=== PATIENT | female | born 1955 ===

== ENCOUNTER 2025-03-28 09:48 | Outpatient (AMB) | payer MEDICARE, SELFPAY ==
--- NOTE | 2025-03-28 09:53 | A.OFFVIS_ITS ---
Intake Visit Reasons: 6m Sensory Neuropathy Allergies No Known Allergies Allergy (Verified 03/28/25 09:54) Medication List - Last Reconciled 03/28/25 by Letty Noriega CNP atorvastatin 20 mg PO DAILY cholestyramine (Cholestyramine Light) 4 grams PO BID lisinopril 5 mg PO DAILY metoprolol succinate ER 25 mg PO DAILY HPI Comments Details: She stopped B complex few months ago, no significant change in symptoms after stopping. Has some left leg numbness and tingling that comes and goes throughout the day, more noticeable after sitting for period of time and when she wakes up. No pain. No symptoms to RLE. No recent falls. She is in PT for slight L meniscus tear which she got after turning weird in garden earlier this spring. Some LLE weakness due to knee injury. Tried B complex for > 6 months, no significant change. Has some left leg numbness and tingling mostly when she wakes up and off and on in the day. Overall feeling better with less tingling and numbness. Also using an orthotic insole. Numbness in the 3 toes of the right foot is gone. Much less tingling in both feet up to the knees with a sensation of things crawling, or if further touching her without any pain or weakness. She gets occasional low back pain. The symptoms of paresthesia in the legs and feet last from 5-10 min. They can oc cur in any position. No triggers have been identified. [facility] Medical History (Updated 03/28/25 @ 09:58 by Letty Noriega CNP) Hyperlipidemia Hypertension Osteoarthritis Bile acid malabsorption syndrome Osteoporosis Review of Systems Const Denies chills, Denies daytime sleepiness, Denies difficulty sleeping, Denies fatigue, Denies fever(s), Denies frequent falls, Denies headache(s), Denies increased appetite, Denies poor appetite, Denies snoring, Denies weakness, Denies weight gain and Denies weight loss Eyes Denies loss of vision ENT Denies vertigo, Denies dizziness, Denies headache(s) and Denies neck pain Card Denies chest pain at rest, Denies chest pain with activity, Denies syncope, Denies leg edema, Denies palpitations, Denies dyspnea and Denies dyspnea on exertion Resp Denies cough, Denies dyspnea, Denies dyspnea on exertion and Denies snoring GI Denies abdominal pain, Denies constipation, Denies heartburn, Denies diarrhea and Denies nausea Denies urinary frequency, Denies urinary incontinence and Denies urinary urgency Musc Denies abnormal gait, Reports back pain, Denies myalgias, Reports arthralgias, Denies neck pain, Reports numbness and Reports tingling Neuro Denies abnormal gait, Denies vertigo, Denies dizziness, Denies syncope, Denies frequent falls, Denies headache(s), Denies lack of coordination, Denies loss of vision, Denies memory loss, Reports numbness, Denies Other visual disturbances, Denies restless legs, Denies seizure-like activity, Reports tingling, Denies paresthesias, Denies tremor(s) and Denies weakness Psych Denies anxiety, Denies depression, Denies auditory hallucinations, Denies memory loss and Denies visual hallucinations Endo Denies fatigue and Denies palpitations Physical Exam Const Other: General Appearance:? normal, in no acute distress. Heart:? S1, S2 normal, no murmurs. Lungs:? clear anteriorly and posteriorly. Musculoskeletal:? normal. Extremities:? no edema. Psych:? alert, oriented, cognitive function intact, cooperative with exam. Neuro Other: Abnormal Neurological Findings:?Diminished AJs 0-1+. KJs 2+ with reinforcement. Mental Status: alert and oriented X 3. Normal attention, orientation, memory, and affect. Cranial Nerves: Pupils are equal, round, and reactive to light. External ocular muscles are intact. Visual alexandre are full, no ptosis. Face is symmetrical, no facial weakness or droop. Facial sensations are normal. Tongue protrudes in midline. Palate elevates symmetrically. Shoulder shrugging is normal Motor Examination: Normal muscle tone, bulk and strength. No atrophy or fasciculations. No drift of the extended upper extremities. DTR 2+, AJs 0-1+. Plantars are flexor. Sensory Exam: Normal light touch, temperature, pinprick, vibration, and joint- position sensations. Rhomberg sign is absent. Coordination: No ataxia. No titubation. Gait Exam: Within normal limits. Cerebellar Signs: [id number] is okay. Extrapyramidal System: No tremor, rigidity with normal facial expressions. No bradykinesia. No bradyphrenia. Normal arm swing and posture. No propulsion or retropulsion. Speech: Normal. Results Reviewed Results Reviewed: 03/08/24 NCV/EMG LE Normal motor and sensory nerve conduction velocities in the lower extremities. Normal EMG in the left L4-S1 innervated muscles. Labs 11/2023 (vitamin B12 + folate, magnesium, methylmalonic acid): ok Assessment & Plan Assessment & Plan (1) Sensory neuropathy: Code(s): G62.9 - Polyneuropathy, unspecified Category: Medical Plan: Stay physically active. Coding Level of Care Code Est Pt Level 4 (39269) Diagnoses Sensory neuropathy G62.9
--- OUTSIDE RECORDS SUMMARY | 2025-03-28 10:44 | XMS_ITS | Patient Health Record ---
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 Name Role Phone Shawn WOOTEN, Steve Primary Care Provider Unav ailable OsirisMario Unavailable [phone] Allergies No Known Allergies Reason For Referral No Information Medications Medication SIG (Take, Route, Frequency, Duration) Notes Start Date End Date Status Lisinopril 5 MG 1 tablet Orally Once a day Active Cholestyramine Light 4 GM 1 scoop Orally Once a day Active Naproxen Sodium 220 MG 1 tablet with paula d or milk as needed Orally every 12 hrs Active Fiber - as directed Orally A ctive Womens 50+ Multi Vitamin - as directed Orally Active Flonase Sensimist 27.5 MCG/SPRAY 2 sprays (1 spray in each nostril) Nasally Once a day Active Calcium + D Active Calcium + D3 Unknown Paxlovid Unknown Metoprolol Succinate ER 25 MG 1 tablet Orally Once a day Active Atorvastatin Calcium Active Social History Tobacco Use: Social History Observation Description Date Details (start date - stop date) Never Smoker NA - NA Tobacco Use/Smoking Question Answer Notes Are you a: nonsmoker Additional Findings: Tobacco Non-User Current no n-smoker Alcohol Screen Question Answer Notes Did you have a drink containing alcohol in the p ast year? Yes Points 0 Interpretation Negative Tobacco use other than smoking: Question Answer Notes Are you an other tobacco user? 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) Neuritis of left foot (G57.92) Active confirmed Plan Of Treatment Pending Test Test Name Order Date X ray : Foot, left 3V 02/22/2024 Insurance Providers Payer Name Payer Address Payer Phone Subscriber Number Group Number Insured Name Patient Relationship to Insured Coverage Start Date Coverage End Date Medicare National Govt Pongo Resume [facility] [address] [place] [address] [id number] HarleenCarly huff Self - patient is the insured [employer] [address] [place] [address] [phone] [id number] Carly Knox Self - patient is the insured Medical (General) History Medical History History ICD Code Carpal tunnel sinusitis Eustachian Tube Disorder Acute pharyngitis Otitis media Greater trochanteric pain syndrome Degenerative Disc disease osteoarthritis Osteopenia Hypertension Scoliosis Bile acid malabsorption syndrome Arthritis Back,Hip,and Knee pain Broken bones covid-19 High blood pressure Measles Chicken pox Joint implants/screws Surgical History Surgery Date(Month/Year) Orthopedic Surgery 06/28/13, 06/10/14 tonsillectomy and adenoidectomy 06/28/63 fractured ankle 05/2014 fractured elbow 1965
--- OUTSIDE RECORDS SUMMARY | 2025-03-28 10:44 | XMS_ITS | Data Portability ---
Author Organization [facility], Main Office Address [address] [facility] [address] [place] [id number] Care Team Providers Care Charge Entry Specialist Name Role Phone STEVE ESCOBAR Primary Care Provider FRAN MCKAY Orthopedic Surgeon [facility] OBGYN Assembler Product [phone] NURIS YAN Events Specialist FERNANDO VILLAREAL Combination Welder GLORIA CHA Licensed Mortician [phone] OBIE GONZALEZ Coding Technician [facility] ENDOCRINOLOGY SCHEDULING DEPT Endocrino logist Assessment No assessment recorded. Plan of Treatment Reminders Order Date Submit Date Provider Last Modified By Organization Details Last Modified Time Details Appointments None recorded. Lab CBC w/ auto diff 2024 025 BEKA [facility] (Centralized Electronic Ordering - All Locations), Patient Can Go To The Location Of Their Choice, 14:22:27 magnesium, serum or plasma 2024 025 BEKA [facility] (Centralized Electronic Ordering - All Locations), Patient Can Go To The Location Of Their Choice, 14:22:26 lipid panel, serum 2024 025 BEKA [facility] (Centralized Electronic Ordering - All Locations), Patient Can Go To The Location Of Their Choice, 14:22:27 CMP, serum or plasma 2024 025 BEKA [facility] (Centralized Electronic Ordering - All Locations), Patient Can Go To The Location Of Their Choice, 5 14:22:26 vitamin B12 + folate, serum or blood 2023 024 BEKA [facility] (Centralized Electronic Ordering - All Locations), Patient Can Go To The Location Of Their Choice, 4 20:09:24 magnesium, serum or plasma 2023 024 BEKA [facility] (Centralized Electronic Ordering - All Locations), Patient Can Go To The Location Of Their Choice, 4 20:09:25 methylmalon ate, QN, serum or plasma 2023 024 BEKA [facility] (Centralized Electronic Ordering - All Locations), Patient Can Go To The Location Of Their Choice, 4 20:09:25 CBC w/ auto diff 2023 024 BEKA [facility] (Centralized Electronic Ordering - All Locations), Patient Can Go To The Location Of Their Choice, 4 06:08:42 lipid panel, serum 2023 024 BEKA [facility] (Centralized Electronic Ordering - All Locations), Patient Can Go To The Location Of Their Choice, 4 06:08:43 CMP, serum or plasma 2023 024 BEKA [facility] (Centralized Electronic Ordering - All Locations), Patient Can Go To The Location Of Their Choice, 4 06:08:43 CBC w/ auto diff 2022 023 BEKA [facility], [address], [address], [place], [address], 3 10:07:24 lipid panel, serum 2022 023 BEKA [facility], [address], [address], [place], [address], 3 10:40:52 CMP, serum or plasma 2022 023 STRYKER [facility], [address], [address], [place], [address], 3 10:40:51 Referral industrial health and safety professor referral 2023 024 [facility], [address] , [facility], [place], [address], 4 14:01:49 Procedures None recorded. Surgeries None recorded. Imaging bone density 2023 024 [facility] (Outt Non-Invasive Cardiology Scheduling), [address] , [place], [address], 4 09:38:11 Medication Orders prednisone 20 mg tablet 2023 024 [email or web address] [id number], [address] [place] [address], [place], [address], 4 15:17:26 Patient TargetsNo targets recorded. Patient Instructions Encounter Date Encounter Id Patient Instructions Last Modified By Organization Details Last Modified Time 08/12/2022 [id number] medicare preventive services guide (female 74yrs and under) [email or web address] Not available 08/12/2022 11:04:58 starting a weight loss plan: care instructions [email or web address] Not available 08/12/2022 11:12:01 07/06/2023 [id number] eustachian tube problems: care instructions [email or web address] Not available 07/06/2023 14:36:34 middle ear fluid: care instructions [email or web address] Not available 07/06/2023 14:36:34 To call or return for worsening or concerns [email or web address] Not available 07/06/2023 14:37:37 10/13/2023 [id number] high blood pressure: care instructions [email or web address] Not available 10/13/2023 15:44:33 learning about high blood pressure [email or web address] Not available 10/13/2023 15:44:33 high cholesterol: care instructions [email or web address] Not available 10/13/2023 15:51:15 preventing falls: care instructions [email or web address] Not available 10/13/2023 15:44:33 well visit, over 65: care instructions [email or web address] Not available 10/13/2023 15:44:33 03/22/2025 [id number] high blood pressure: care instructions [email or web address] Not available 03/22/2025 14:02:47 learning about high blood pressure [email or web address] Not available 03/22/2025 14:02:47 preventing falls: care instructions [email or web address] Not available 03/22/2025 14:02:47 well visit, over 65: care instructions [email or web address] Not available 03/22/2025 14:02:47 Reason for Referral Pediatric Cns 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 Referring Physician: Steve Escobar, Family Medicine, Encounter Date: 12/02/2023 Results Created Date Observation Date Name Description Value Unit Range Abnormal Flag Note LastModifiedBy Organization Detail LastModifiedTime 10/31/1910/30/2022 COMPL ETE CBC WITH DIFF WBC 5.6 K/mm3 (4.0-1 1.0) Not Available [facility] (Centralized Electronic Ordering - All Locations) Patient Can Go To The Location Of Their Choice, 10/30/2022 10:07:24 10/31/1910/30/2022 COMPL ETE CBC WITH DIFF RBC 4.29 M/mm3 (4.20- 5.40) Not Available [facility] (Centralized Electronic Ordering - All Locations) Patient Can Go To The Location Of Their Choice, 10/30/2022 10:07:24 10/31/1910/30/2022 COMPL ETE CBC WITH DIFF HGB 13.4 gm/dL (11.7- 15.5) Not Available [facility] (Centralized Electronic Ordering - All Locations) Patient Can Go To The Location Of Their Choice, 10/30/2022 10:07:24 10/31/1910/30/2022 COMPL ETE CBC WITH DIFF HCT 41.8 % (35.7- 45.8) Not Available [facility] (Centralized Electronic Ordering - All Locations) Patient Can Go To The Location Of Their Choice, 10/30/2022 10:07:24 10/31/1910/30/2022 COMPL ETE CBC WITH DIFF MCV 97.4 fL (80.0- 100.0) Not Available [facility] (Centralized Electronic Ordering - All Locations) Patient Can Go To The Location Of Their Choice, 10/30/2022 10:07:24 10/31/1910/30/2022 COMPL ETE CBC WITH DIFF MCH 31.2 pg (27.0- 34.0) Not Available [facility] (Centralized Electronic Ordering - All Locations) Patient Can Go To The Location Of Their Choice, 10/30/2022 10:07:24 10/31/1910/30/2022 COMPL ETE CBC WITH DIFF MCHC 32.1 g/dL (33.0- 37.0) low Not Available [facility] (Centralized Electronic Ordering - All Locations) Patient Can Go To The Location Of Their Choice, 10/30/2022 10:07:10/31/1910/30/2022 COMPL ETE CBC WITH DIFF plt 294 K/mm3 (150-4 60) Not Available [facility] (Centralized Electronic Ordering - All Locations) Patient Can Go To The Location Of Their Choice, 10/30/2022 10:07:10/31/1910/30/2022 COMPL ETE CBC WITH DIFF RDW-SD 46.5 fL (<47.0 ) Not Available [facility] (Centralized Electronic Ordering - All Locations) Patient Can Go To The Location Of Their Choice, 10/30/2022 10:07:24 10/31/1910/30/2022 COMPL ETE CBC WITH DIFF MPV 9.6 fL (9.4-1 2.4) Not Available [facility] (Centralized Electronic Ordering - All Locations) Patient Can Go To The Location Of Their Choice, 10/30/2022 10:07:24 10/31/1910/30/2022 COMPL ETE CBC WITH DIFF automated NRBC 0.0 #/100 _WBC' s Not Available [facility] (Centralized Electronic Ordering - All Locations) Patient Can Go To The Location Of Their Choice, 10/30/2022 10:07:24 10/31/1910/30/2022 COMPL ETE CBC WITH DIFF abs. NRBC 0.0 K/mm3 Not Available [facility] (Centralized Electronic Ordering - All Locations) Patient Can Go To The Location Of Their Choice, 10/30/2022 10:07:24 10/31/1910/30/2022 COMPL ETE CBC WITH DIFF neut # 3.0 K/mm3 (1.3-7 .0) Not Available [facility] (Centralized Electronic Ordering - All Locations) Patient Can Go To The Location Of Their Choice, 10/30/2022 10:07:24 10/31/1910/30/2022 COMPL ETE CBC WITH DIFF lymph # 1.8 K/mm3 (0.8-3 .1) Not Available [facility] (Centralized Electronic Ordering - All Locations) Patient Can Go To The Location Of Their Choice, 10/30/2022 10:07:24 10/31/1910/30/2022 COMPL ETE CBC WITH DIFF mono# 0.6 K/mm3 (0.4-0 .9) Not Available [facility] (Centralized Electronic Ordering - All Locations) Patient Can Go To The Location Of Their Choice, 10/30/2022 10:07:24 10/31/1910/30/2022 COMPL ETE CBC WITH DIFF eo # 0.2 K/mm3 (0.0-0 .4) Not Available [facility] (Centralized Electronic Ordering - All Locations) Patient Can Go To The Location Of Their Choice, 10/30/2022 10:07:24 10/31/1910/30/2022 COMPL ETE CBC WITH DIFF baso # 0.1 K/mm3 (0.0-0 .1) Not Available [facility] (Centralized Electronic Ordering - All Locations) Patient Can Go To The Location Of Their Choice, 10/30/2022 10:07:24 10/31/1910/30/2022 COMPL ETE CBC WITH DIFF abs. imm gran 0.0 K/mm3 Not Available [facility] ([facility] Order[facility] - All Locations) Patient Can Go To The Location Of Their Choice, 10/30/2022 10:07:24 10/31/1910/30/2022 COMPL ETE CBC WITH DIFF neut 53.0 % (44-76 ) Not Available [facility] (Centralized Electronic Ordering - All Locations) Patient Can Go To The Location Of Their Choice, 10/30/2022 10:07:24 10/31/1910/30/2022 COMPL ETE CBC WITH DIFF lymph 32.4 % (15-43 ) Not Available [facility] (Centralized Electronic Ordering - All Locations) Patient Can Go To The Location Of Their Choice, 10/30/2022 10:07:24 10/31/1910/30/2022 COMPL ETE CBC WITH DIFF monocyte 9.8 % (4.5-1 0.5) Not Available [facility] (Centralized Electronic Ordering - All Locations) Patient Can Go To The Location Of Their Choice, 10/30/2022 10:07:24 10/31/1910/30/2022 COMPL ETE CBC WITH DIFF eo 3.5 % (0-6) Not Available [facility] (Centralized Electronic Ordering - All Locations) Patient Can Go To The Location Of Their Choice, 10/30/2022 10:07:24 10/31/1910/30/2022 COMPL ETE CBC WITH DIFF baso 0.9 % (0-2) Not Available [facility] (Centralized Electronic Ordering - All Locations) Patient Can Go To The Location Of Their Choice, 10/30/2022 10:07:24 10/31/1910/30/2022 COMPL ETE CBC WITH DIFF imm gran 0.4 % Not Available [facility] (Centralized Electronic Ordering - All Locations) Patient Can Go To The Location Of Their Choice, 10/30/2022 10:07:24 10/31/1910/30/2022 COMPR EHENS BATOOL METAB OLIC PANL glucose 93 mg/dL (70-99 ) Fasti ng Not Available [facility] (Centralized Electronic Ordering - All Locations) Patient Can Go To The Location Of Their Choice, 10/30/2022 10:40:51 10/31/1910/30/2022 COMPR EHENS BATOOL METAB OLIC PANL BUN 15 mg/dL (8-23) Not Available [facility] (Centralized Electronic Ordering - All Locations) Patient Can Go To The Location Of Their Choice, 10/30/2022 10:40:51 10/31/1910/30/2022 COMPR EHENS BATOOL METAB OLIC PANL creatinine 0.9 mg/dL (0.5-1 .0) Not Available [facility] (Centralized Electronic Ordering - All Locations) Patient Can Go To The Location Of Their Choice, 10/30/2022 10:40:51 10/31/1910/30/2022 COMPR EHENS BATOOL METAB OLIC PANL sodium 141 mmol/ L (133-1 45) Not Available [facility] (Centralized Electronic Ordering - All Locations) Patient Can Go To The Location Of Their Choice, 10/30/2022 10:40:51 10/31/1910/30/2022 COMPR EHENS BATOOL METAB OLIC PANL potassium 4.5 mmol/ L (3.6-5 .2) Not Available [facility] (Centralized Electronic Ordering - All Locations) Patient Can Go To The Location Of Their Choice, 10/30/2022 10:40:51 10/31/1910/30/2022 COMPR EHENS BATOOL METAB OLIC PANL chloride 104 mmol/ L (98-10 7) Not Available [facility] (Centralized Electronic Ordering - All Locations) Patient Can Go To The Location Of Their Choice, 10/30/2022 10:40:51 10/31/1910/30/2022 COMPR EHENS BATOOL METAB OLIC PANL bicarbonate 28 mmol/ L (22-29 ) Not Available [facility] (Centralized Electronic Ordering - All Locations) Patient Can Go To The Location Of Their Choice, 10/30/2022 10:40:51 10/31/1910/30/2022 COMPR EHENS BATOOL METAB OLIC PANL anion gap 9 (4-17) Not Available [facility] (Centralized Electronic Ordering - All Locations) Patient Can Go To The Location Of Their Choice, 10/30/2022 10:40:51 10/31/1910/30/2022 COMPR EHENS BATOOL METAB OLIC PANL albumin 4.6 gm/dL (3.4-4 .8) Not Available [facility] (Centralized Electronic Ordering - All Locations) Patient Can Go To The Location Of Their Choice, 10/30/2022 10:40:51 10/31/1910/30/2022 COMPR EHENS BATOOL METAB OLIC PANL calcium 9.6 mg/dL (8.6-1 0.5) Not Available [facility] (Centralized Electronic Ordering - All Locations) Patient Can Go To The Location Of Their Choice, 10/30/2022 10:40:51 10/31/1910/30/2022 COMPR EHENS BATOOL METAB OLIC PANL bilirubin,to howie 0.5 mg/dL (0-1.2 ) Not Available [facility] (Centralized Electronic Ordering - All Locations) Patient Can Go To The Location Of Their Choice, 10/30/2022 10:40:51 10/31/1910/30/2022 COMPR EHENS BATOOL METAB OLIC PANL total protein 6.8 gm/dL (6.2-8 .2) Not Available [facility] (Centralized Electronic Ordering - All Locations) Patient Can Go To The Location Of Their Choice, 10/30/2022 10:40:51 10/31/1910/30/2022 COMPR EHENS BATOOL METAB OLIC PANL Ag ratio 2.1 Not Available [facility] (Centralized Electronic Ordering - All Locations) Patient Can Go To The Location Of Their Choice, 10/30/2022 10:40:51 10/31/1910/30/2022 COMPR EHENS BATOOL METAB OLIC PANL AST 20 U/L (0-32) Not Available [facility] (Centralized Electronic Ordering - All Locations) Patient Can Go To The Location Of Their Choice, 10/30/2022 10:40:51 10/31/1910/30/2022 COMPR EHENS BATOOL METAB OLIC PANL alk phos 72 U/L (35-10 4) Not Available [facility] ([facility]ized Electronic Ordering - All Locations) Patient Can Go To The Location Of Their Choice, 10/30/2022 10:40:51 10/31/1910/30/2022 COMPR EHENS BATOOL METAB OLIC PANL ALT 16 U/L (0-33) Not Available [facility] ([facility]ized Electronic Ordering - All Locations) Patient Can Go To The Location Of Their Choice, 10/30/2022 10:40:51 10/31/1910/30/2022 COMPR EHENS BATOOL METAB OLIC PANL estimated GFR creatinine 71 mL/mi n/1.7 3_M2 Creat inine based estim ated glome rular filtr ation (eGFR ) in adult s is calcu lated using the Natio nal Kidne y Found ation recom yeison d 2020 CKD-E PI equat ion. Estim ates GFR from serum creat inine , age and sex. Not Available [facility] ([facility]ized Electronic Ordering - All Locations) Patient Can Go To The Location Of Their Choice, 10/30/2022 10:40:51 10/31/1910/30/2022 LIPID PANEL cholesterol, total 181 mg/dL (<200) Not Available [facility] ([facility] Order[facility] - All Locations) Patient Can Go To The Location Of Their Choice, 10/30/2022 10:40:52 10/31/1910/30/2022 LIPID PANEL triglyceride 98 mg/dL (<150) Fasti ng Not Available [facility] ([facility]ized [facility] Ordering - All Locations) Patient Can Go To The Location Of Their Choice, 10/30/2022 10:40:52 10/31/1910/30/2022 LIPID PANEL HDL chol 88 mg/dL (>39) Not Available [facility] ([facility] Ordering - All Locations) Patient Can Go To The Location Of Their Choice, 10/30/2022 10:40:52 10/31/1910/30/2022 LIPID PANEL LDL cholesterol, calculated 73 mg/dL (0-130 ) Not Available [facility] ([facility] Ordering - All Locations) Patient Can Go To The Location Of Their Choice, 10/30/2022 10:40:52 10/31/1910/30/2022 LIPID PANEL non HDL cholesterol (calc) 93 mg/dL (<160) Not Available [facility] ([facility] Order[facility] - All Locations) Patient Can Go To The Location Of Their Choice, 10/30/2022 10:40:52 11/25/1911/25/2023 CBC WITH ANGELLA BRANHAM AL/PL ATELE T WBC 6.0 x10e3 /uL 3.4-10 .8 Not Available [facility] ([facility]) [address], [place], [address], 11/26/2023 06:08:42 11/25/19 24 11/25/2023 CBC WITH DIFFE RENTI AL/PL ATELE T RBC 4.20 x10e6 /uL 3.77-5 .28 Not Available [facility] ([facility]) [address] [place], [address], 11/26/2023 06:08:42 11/25/19 24 11/25/2023 CBC WITH DIFFE RENTI AL/PL ATELE T hemoglobin 13.3 g/dL 11.1-1 5.9 Not Available [facility] ([facility]) [address] [place], [address], 11/26/2023 06:08:42 11/25/19 24 11/25/2023 CBC WITH DIFFE RENTI AL/PL ATELE T hematocrit 41.4 % 34.0-4 6.6 Not Available [facility] ([facility]) [address] [place], [address], 11/26/2023 06:08:42 11/25/19 24 11/25/2023 CBC WITH DIFFE RENTI AL/PL ATELE T MCV 99 fL 79-97 above high normal Not Available [facility] ([facility]) [address] [place], [address], 11/26/2023 06:08:42 11/25/19 24 11/25/2023 CBC WITH DIFFE RENTI AL/PL ATELE T MCH 31.7 pg 26.6-3 3.0 Not Available [facility] ([facility]) [address] [place], [address], 11/26/2023 06:08:42 11/25/19 24 11/25/2023 CBC WITH DIFFE RENTI AL/PL ATELE T MCHC 32.1 g/dL 31.5-3 5.7 Not Available [facility] ([facility]) [address] [place], [address], 11/26/2023 06:08:42 11/25/19 24 11/25/2023 CBC WITH DIFFE RENTI AL/PL ATELE T RDW 12.3 % 11.7-1 5.4 Not Available [facility] ([facility]) [address] [facility], [place], [address], 11/26/2023 06:08:42 11/25/19 24 11/25/2023 CBC WITH DIFFE RENTI AL/PL ATELE T platelets 322 x10e3 /uL 150-45 0 Not Available [facility] ([facility]) [address] [facility], [place], [address], 11/26/2023 06:08:42 11/25/19 24 11/25/2023 CBC WITH DIFFE RENTI AL/PL ATELE T neutrophils 54 % not estab. Not Available [facility] ([facility]) [address] [facility], [place], [address], 11/26/2023 06:08:42 11/25/19 24 11/25/2023 CBC WITH DIFFE RENTI AL/PL ATELE T lymphs 32 % not estab. Not Available [facility] ([facility]) [address] [facility], [place], [address], 11/26/2023 06:08:42 11/25/19 24 11/25/2023 CBC WITH DIFFE RENTI AL/PL ATELE T monocytes 9 % not estab. Not Available [facility] ([facility]) [address] [facility], [place], [address], 11/26/2023 06:08:42 11/25/19 24 11/25/2023 CBC WITH DIFFE RENTI AL/PL ATELE T eos 4 % not estab. Not Available [facility] ([facility]) [address] [facility], [place], [address], 11/26/2023 06:08:42 11/25/19 24 11/25/2023 CBC WITH DIFFE RENTI AL/PL ATELE T basos 1 % not estab. Not Available [facility] ([facility]) [address] [facility], [place], [address], 11/26/2023 06:08:42 11/25/19 24 11/25/2023 CBC WITH DIFFE RENTI AL/PL ATELE T immature cells PLUMBING INSPECTOR Not Available [facility] ([facility]) [address] [place], [address], 11/26/2023 06:08:42 11/25/19 24 11/25/2023 CBC WITH DIFFE RENTI AL/PL ATELE T neutrophils (absolute) 3.3 x10e3 /uL 1.4-7. 0 Not Available [facility] ([facility]) [address] [facility], [place], [address], 11/26/2023 06:08:42 11/25/19 24 11/25/2023 CBC WITH DIFFE RENTI AL/PL ATELE T lymphs (absolute) 1.9 x10e3 /uL 0.7-3. 1 Not Available [facility] ([facility]) [address] [place], [address], 11/26/2023 06:08:42 11/25/19 24 11/25/2023 CBC WITH DIFFE RENTI AL/PL ATELE T monocytes(ab solute) 0.5 x10e3 /uL 0.1-0. 9 Not Available [facility] ([facility]) [address] [place], [address], 11/26/2023 06:08:42 11/25/19 24 11/25/2023 CBC WITH DIFFE RENTI AL/PL ATELE T eos (absolute) 0.2 x10e3 /uL 0.0-0. 4 Not Available [facility] ([facility]) [address] [place], [address], 11/26/2023 06:08:42 11/25/19 24 11/25/2023 CBC WITH DIFFE RENTI AL/PL ATELE T baso (absolute) 0.1 x10e3 /uL 0.0-0. 2 Not Available [facility] ([facility]) [address] [facility], [place], [address], 11/26/2023 06:08:42 11/25/19 24 11/25/2023 CBC WITH DIFFE RENTI AL/PL ATELE T immature granulocytes 0 % not estab. Not Available [facility] ([facility]) [address] [facility], [place], [address], 11/26/2023 06:08:42 11/25/19 24 11/25/2023 CBC WITH DIFFE RENTI AL/PL ATELE T immature grans (abs) 0.0 x10e3 /uL 0.0-0. 1 Not Available [facility] ([facility]) [address] [facility], [place], [address], 11/26/2023 06:08:42 11/25/19 24 11/25/2023 CBC WITH DIFFE RENTI AL/PL ATELE T NRBC PLUMBING INSPECTOR Not Available [facility] ([facility]) [address] [facility], [place], [address], 11/26/2023 06:08:42 11/25/19 24 11/25/2023 CBC WITH DIFFE RENTI AL/PL ATELE T hematology comments: PLUMBING INSPECTOR Not Available [facility] ([facility]) [address] [facility], [place], [address], 11/26/2023 06:08:42 11/25/19 24 11/25/2023 COMP. METAB OLIC PANEL (14) glucose 84 mg/dL 70-99 Not Available [facility] ([facility]) [address] [place], [address], 11/26/2023 06:08:43 11/25/19 24 11/25/2023 COMP. METAB OLIC PANEL (14) BUN 12 mg/dL 8-27 Not Available [facility] ([facility]) [address] [facility] [place], [address], 11/26/2023 06:08:43 11/25/19 24 11/25/2023 COMP. METAB OLIC PANEL (14) creatinine 0.90 mg/dL 0.57-1 .00 Not Available [facility] ([facility]) [address] [facility] [place], [address], 11/26/2023 06:08:43 11/25/19 24 11/25/2023 COMP. METAB OLIC PANEL (14) eGFR 71 mL/mi n/1.7 3 >59 Not Available [facility] ([facility]) [address] [facility] [place], [address], 11/26/2023 06:08:43 11/25/19 24 11/25/2023 COMP. METAB OLIC PANEL (14) BUN/creatini ne ratio 13 12-28 Not Available [facility] ([facility]) [address] [facility] [place], [address], 11/26/2023 06:08:43 11/25/19 24 11/25/2023 COMP. METAB OLIC PANEL (14) sodium 137 mmol/ L 134-14 4 Not Available [facility] ([facility]) [address] [facility] [place], [address], 11/26/2023 06:08:43 11/25/19 24 11/25/2023 COMP. METAB OLIC PANEL (14) potassium 4.5 mmol/ L 3.5-5. 2 Not Available [facility] ([facility]) [address] [facility] [place], [address], 11/26/2023 06:08:43 11/25/19 24 11/25/2023 COMP. METAB OLIC PANEL (14) chloride 101 mmol/ L 96-106 Not Available [facility] ([facility]) [address] [place], [address], 11/26/2023 06:08:43 11/25/19 24 11/25/2023 COMP. METAB OLIC PANEL (14) carbon dioxide, total 22 mmol/ L Not Available [facility] ([facility]) [address] [place], [address], 11/26/2023 06:08:43 11/25/19 24 11/25/2023 COMP. METAB OLIC PANEL (14) calcium 9.5 mg/dL 8.7-10 .3 Not Available [facility] ([facility]) [address] [place], [address], 11/26/2023 06:08:43 11/25/19 24 11/25/2023 COMP. METAB OLIC PANEL (14) protein, total 6.7 g/dL 6.0-8. 5 Not Available [facility] ([facility]) [address] [place], [address], 11/26/2023 06:08:43 11/25/19 24 11/25/2023 COMP. METAB OLIC PANEL (14) albumin 4.3 g/dL 3.9-4. 9 Not Available [facility] ([facility]) [address] [place], [address], 11/26/2023 06:08:43 11/25/19 24 11/25/2023 COMP. METAB OLIC PANEL (14) globulin, total 2.4 g/dL 1.5-4. 5 Not Available [facility] ([facility]) [address] [place], [address], 11/26/2023 06:08:43 11/25/19 24 11/25/2023 COMP. METAB OLIC PANEL (14) A/G ratio 1.8 1.2-2. 2 Not Available [facility] ([facility]) [address] [place], [address], 11/26/2023 06:08:43 11/25/19 24 11/25/2023 COMP. METAB OLIC PANEL (14) bilirubin, total 0.4 mg/dL 0.0-1. 2 Not Available [facility] ([facility]) [address] [place], [address], 11/26/2023 06:08:43 11/25/19 24 11/25/2023 COMP. METAB OLIC PANEL (14) alkaline phosphatase 87 IU/L 44-121 Not Available [facility] ([facility]) [address] [place], [address], 11/26/2023 06:08:43 11/25/19 24 11/25/2023 COMP. METAB OLIC PANEL (14) AST (SGOT) 19 IU/L 0-40 Not Available [facility] ([facility]) [address] [place], [address], 11/26/2023 06:08:43 11/25/19 24 11/25/2023 COMP. METAB OLIC PANEL (14) ALT (SGPT) 14 IU/L 0-32 Not Available [facility] ([facility]) [address] [place], [address], 11/26/2023 06:08:43 11/25/19 24 11/25/2023 LIPID PANEL cholesterol, total 176 mg/dL 100-19 9 Not Available [facility] ([facility]) [address] [place], [address], 11/26/2023 06:08:43 11/25/19 24 11/25/2023 LIPID PANEL triglyceride s 78 mg/dL 0-149 Not Available [facility] ([facility]) [address] [place], [address], 11/26/2023 06:08:43 11/25/19 24 11/25/2023 LIPID PANEL HDL cholesterol 89 mg/dL >39 Not Available [facility] ([facility]) [address] [facility] [place], [address], 11/26/2023 06:08:43 11/25/19 24 11/25/2023 LIPID PANEL VLDL cholesterol thang 14 mg/dL 5-40 Not Available [facility] ([facility]) [address] [facility] [place], [address], 11/26/2023 06:08:43 11/25/19 24 11/25/2023 LIPID PANEL LDL chol calc ([facility]) 73 mg/dL 0-99 Not Available [facility] ([facility]) [address] [facility] [place], [address], 11/26/2023 06:08:43 11/25/19 24 11/25/2023 LIPID PANEL comment: PLUMBING INSPECTOR Not Available [facility] ([facility]) [address] [facility] [place], [address], 11/26/2023 06:08:43 12/02/19 24 12/03/2023 VITAM IN B12 AND FOLAT E vitamin B12 469 pg/mL 232-12 45 Not Available [facility] ([facility]) [address] [facility] [place], [address], 12/06/2023 20:09:24 12/02/19 24 12/03/2023 VITAM IN B12 AND FOLAT E folate (folic acid), serum 13.1 NG/mL >3.0 A serum folat e jena ntrat ion of less than 3.1 ng/mL is consi dered to repre sent clini thang defic iency . Not Available [facility] ([facility]) [address] [facility] [place], [address], 12/06/2023 20:09:24 12/02/19 24 12/06/2023 METHY LMALO ALEXSANDRA ACID, SERUM methylmaloni c acid, serum 266 nmol/ L 0-378 Not Available [facility] ([facility]) [address] [facility] [place], [address], 12/06/2023 20:09:25 12/02/19 24 12/03/2023 MAGNE SIUM magnesium 1.9 mg/dL 1.6-2. 3 Not Available [facility] ([facility]) [address], [place], [address], 12/06/2023 20:09:25 08/13/19 23 08/13/2022 MAMMO , arsenioe hortencia, digit al, bilat eral No observ ation record ed. [email or web address] [address], [place], [address], 08/13/2022 13:36:47 01/05/20 23 12/31/2022 XR, hand, 3 or more view No observ ation record ed. [facility] [address], [address], 01/05/2023 09:46:29 01/05/20 23 12/31/2022 XR, hip, unila teral , 2 or 3 view No observ ation record ed. [facility] [address], [address], 01/05/2023 09:47:38 01/05/20 23 12/31/2022 XR, lumbo sacra l spine , 4 or more view No observ ation record ed. [email or web address] [address], [address], 01/05/2023 09:50:56 08/17/19 24 08/16/2023 MAMMO , arsenioe hortencia, digit al, bilat eral No observ ation record ed. [email or web address] [facility] [address] [place] [address], [address], 08/17/2023 13:58:05 01/04/20 24 01/04/2024 bone densi ty No observ ation record ed. [email or web address] [facility] [address] [place], [address], 01/07/2024 15:53:54 01/11/20 24 01/04/2024 bone densi ty No observ ation record ed. na Not Available 12/26 17:49:59 03/28/20 24 01/04/2024 bone densi ty No observ ation record ed. [email or web address] [facility] [address] [place], [address], 04/11/2024 08:12:07 08/02/19 25 08/01/2024 bone densi ty No observ ation record ed. [facility] [address], [address], 08/02/2024 17:03:27 08/02/19 25 08/01/2024 XR, knee No observ ation record ed. [facility] [address], [address], 08/02/2024 17:04:45 Result Notes None recorded. Problems Name Problem SNOMED Code Status Onset Date Resolution Date Notes Provider Name and Address Organization Details Recorded Time Acute pharyngi tis 451643471 Completed 09/07/2016 Crystal liu [facility] 7 14:57:35 Otitis media 08654087 Completed 09/07/2016 Crystal liu [facility] 7 14:57:41 Sinusiti s 33933506 Completed 09/07/2016 Crystal liu [facility] 7 14:57:29 Eustachi an tube disorder 31658520 Active Referred to ENT Steve Escobar MD [address], [place], [address] , [facility] 20:24:57 Screenin g for malignan t neoplasm of breast Completed 200701/09/2014 RECORDED 12/01/19 08 1:28PM BY STEVE HOYOS MD, ANNOTATI ON/ADDEN DUM Not Available [facility] 4 13:42:04 Adult health examinat ion Completed 200701/09/2014 RECORDED 12/01/19 08 1:28PM BY STEVE HOYOS MD, ANNOTATI ON/ADDEN DUM Not Available [facility] 4 13:42:04 Pain of hip region 58931663 Completed 201009/07/2016 intermit tent Crystal liu, [facility] 7 14:57:50 Screenin g for malignan t neoplasm of breast Completed 201006/11/2014 RECORDED 10/10/19 11 10:51AM BY KEVIN METZGER I, OFFICE VISIT Steve Escobar MD [address], [place], [address] , [facility] 12:26:12 Carpal tunnel syndrome 52489049 Active 2010 Steve Escobar MD [address], [place], [address] , [facility] 10:01:33 Neck pain 40749186 Completed 201009/07/2016 Crystal liu, [facility] 7 14:57:46 Screenin g for malignan t neoplasm of colon Completed 201006/11/2014 RECORDED 10/10/19 11 10:51AM BY KEVIN METZGER I, OFFICE VISIT Steve Escobar MD [address], [place], [address] , [facility] 12:26:12 Adult health examinat ion Completed 201006/11/2014 RECORDED 10/10/19 11 10:51AM BY KEVIN METZGER I, OFFICE VISIT Steve Escobar MD [address], [place], [address] , [facility] 12:26:12 Fracture of ankle 43259034 Active [address] Naomi Escobar MD [address], [place], [address] , [facility] 10:00:40 Greater trochant jona pain syndrome 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 2016 Followed by rheum Steve Escobar MD [address] [facility] [address], [place], [address] , [facility] 7 23:07:23 Degenera 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 Active 2016 cervical Steve Escobar MD [address] [facility] [address], [place], [address] , [facility] 23:07:59 Osteoart hritis of hip 164506060 Active 2016 left Steve Escobar MD [address] [facility] [address], [place], [address] , [facility] 23:08:23 Osteopen ia 040131301 Active 2020 bone density done 08/28/20 Steve Escobar MD [address] [facility] [address], [place], [address] , [facility] 1 12:31:49 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 03876909279 43645 Active 2023 ADOLFO Hester [address] [facility] [address], [place], [address] , [facility] 4 14:35:46 Essentia l hyperten rossi 75008811 Active 2023 ADOLFO Hester [address] [facility] [address], [place], [address] , [facility] 4 14:51:16 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 Steve Escobar MD [address] [address], [place], [address] , [facility] 07:49:24 Problem Notes None recorded. Procedures Surgical History Date Name Laterality Status Provider Name and Address Organization Details Recorded Time 08/01 injection completed Traci Vieira [facility] 5 09:38:22 12/12 injection into bursa completed Traci Vieira [facility] 4 10:39:02 08/16 Most Recent Mammogram completed Kaylee Armendariz [facility] 4 13:58:02 08/16 Mammogram screening completed Kayleebryan Armendariz [facility] 4 13:57:57 09/16 Date of Last Colonoscopy completed Priscil la Garcia [facility] 2 16:09:44 09/16 Colonoscopy completed Ashley Jose [facility] 2 16:09:28 05/29 injection completed Ashley Jose [facility] 1 13:45:05 10/09 esophagogastroduodenoscopy completed Prisc illhortensia Garcia [facility] 1 10:45:07 08/28 Most Recent Bone Density completed Ava Corral MA [facility] 3 15:15:14 04/13 Hydrocortisone acetate inj completed Kevin Cantrell [facility] 7 08:28:34 06/28 Orthopedic Surgery completed Steve Escobar MD [address], [place], [address] , [facility] 12:26:12 06/28 Tonsillectomy completed Milena Laguna MA [facility] 0 09:53:02 06/28 Adenoidectomy completed Milena Laguna MA [facility] 0 09:53:02 Imaging Results None recorded. Procedure Notes None recorded. Medical Equipment None Reported. Allergies Allergen ID Allergen Name Allergen Category Reaction Reaction Severity Criticality Documentation Date Start Date Code Code System Note Provider Name and Address Organization Details Recorded Time 647 No known allergy (situatio n) Not available Not available Not available Not available 01/09/20142010 05621 6003 SNOMED COMME NT: RECOR DED 10/09 10:51 AM BY KEVIN MARTINES, OFFIC E VISIT ; FRAN Mosqueda [facility] 6 09:35:05 No known drug allergies Medications Name Sig Start Date Stop Date Status Note LastModified by Organization Details LastModified Time atorvasta tin 20 mg tablet TAKE 1 TABLET BY MOUTH EVERY DAY active Not Available Not Available No t Available azithromy yesenia 250 mg tablet TAKE 2 TABLETS (500 MG) BY ORAL ROUTE ONCE DAILY FOR 1 DAY THEN 1 TABLET (250 MG) BY ORAL ROUTE ONCE DAILY FOR 4 DAYS 09/07 completed Not Available Not Available Not Available valacyclo vir 1 gram tablet TAKE 1 TABLET BY MOUTH THREE TIMES A DAY FOR 7 DAYS 08/12 completed Not Available Not Available Not Available prednison e 20 mg tablet TAKE 2 TABLETS BY MOUTH EVERY DAY DIRECTED FOR 5 DAYS 10/12 completed Not Available Not Available Not Available fexofenad ine 180 mg tablet Take 1 tablet every day by oral route for 90 days. 01/07 completed Not Available Not Available Not Available peg-elect rolyte solution 420 gram oral solution MIX AND DRINK DIRECTED 240ML EVERY 15 TO 20 MINUTES UNTIL HALF IS GONE. REPEAT 6 HOURS PRIOR TO PROCEDUR E 06/19 completed Not Available Not Available Not Available Cholestyr amine Light 4 gram powder for suspensio n in a packet MIX 1 PACK/PAC KET IN LIQUID DIRECTED AND TAKE BY MOUTH 2 TIMES A DAY active Not Available Not Available No t Available amoxicill in 875 mg tablet Take 1 tablet every 12 hours by oral route for 10 days. 01/07 completed Not Available Not Available Not Available amitripty line 10 mg tablet TAKE 1 TABLET BY MOUTH EVERYDAY AT BEDTIME 08/26 completed Not Available Not Available Not Available meclizine 25 mg tablet Take 1 tablet 3 times a day by oral route as needed for 10 days. 12/04 completed Not Available Not Available Not Available naproxen sodium 220 mg tablet Take 1 tablet every 12 hours by oral route. active one in morning, one at night prn Not Available Not Available Not Available mometason e 50 mcg/actua tion nasal spray [place] 2 sprays every day by intranas al route for 30 days. 01/07 completed Not Available Not Available Not Available lisinopri l 5 mg tablet TAKE 1 TABLET BY MOUTH EVERY DAY active Not Available Not Available No t Available metoprolo l succinate ER 25 mg tablet,ex tended release 24 hr TAKE 1 TABLET BY MOUTH EVERY DAY active Not Available Not Available No t Available fluticaso ne propionat e 50 mcg/actua tion nasal spray,ramses pension Inhale 1 spray each nostril EVERY DAY by intranas al route. 09/07 completed Not Available Not Available Not Available loratadin e 10 mg tablet TAKE 1 TABLET BY MOUTH DAILY 09/07 completed Not Available Not Available Not Available ciclopiro x 0.77 % topical cream Apply 1 applicat ion every day by topical route as needed. 06/19 completed Not Available Not Available Not Available cholestyr amine-asp artame 4 gram oral powder for susp in a packet PLEASE SEE ATTACHED FOR DETAILED DIRECTIO NS 03/22 completed Not Available Not Available Not Available psyllium husk take 1 capsule daily 08/12 completed psyllium fiber suppleme nt Not Available Not Available Not Available Calcium 600 + D(3) 600 mg-10 mcg (400 unit) tablet Take 1 tablet every day by oral route. active Not Available Not Available No t Available Cholestyr amine Light 4 gram oral powder MIX 4 GM DIRECTED AND TAKE BY MOUTH DAILY,X9 0 DAYS,INS TR:NEEDS APPT BEFORE FUTURE REFILLS 03/22 completed Not Available Not Available Not Available Probiotic take 1 tab po daily 08/12 completed Not Available Not Available Not Available Flonase Sensimist 27.5 mcg/actua tion nasal spray,ramses pension Take 1 spray every day by nasal route at bedtime. active Not Available Not Available No t Available Fiber (psyllium husk) 0.4 gram capsule Take 1 capsule every day by oral route. active Not Available Not Available No t Available Readi-Cat 2 2 % (w/v) oral suspensio n 11/15 completed Not Available Not Available Not Available Women's 50 Plus Multivita min take 1 tab po daily active Not Available Not Available No t Available BinaxNOW COVID-19 Ag Self Test kit TEST DIRECTED TODAY 07/06 completed Not Available Not Available Not Available Paxlovid 300 mg (150 mg x 2)-100 mg tablets in a dose pack Take 3 tablets twice a day by oral route as directed for 5 days. 08/12 completed Not Available Not Available Not Available Vitals Date Recorded Body height Body mass index (BMI) Body weight Oxygen saturation Oxygen saturation in Arterial blood by Pulse oximetry Heart rate Body temperature Systolic And Diastolic Provider Name and Address Organization Details Last Updated DateTime 4 160.02 cm 29.5 kg/m2 12586.1 3 g 99 % 99 % 87 /min 97.3 [degF] 129/77 mm[Hg] Katelin Suh MA [facility] 4 14:29:14 Date Recorded Body height Body mass index (BMI) Body weight Heart rate Oxygen saturation Oxygen saturation in Arterial blood by Pulse oximetry Body temperature Systolic And Diastolic Provider Name and Address Organization Details Last Updated DateTime 3 160.02 cm 28.4 kg/m2 36699.1 8 g 84 /min 99 % 99 % 97.2 [degF] 133/78 mm[Hg] Winsome Corral MA [facility] 3 10:35:17 Date Recorded Body height Body mass index (BMI) Body weight Heart rate Oxygen saturation Oxygen saturation in Arterial blood by Pulse oximetry Body temperature Systolic And Diastolic Provider Name and Address Organization Details Last Updated DateTime 4 160.02 cm 29.2 kg/m2 01044.7 4 g 75 /min 98 % 98 % 97.6 [degF] 124/80 mm[Hg] Lydia Meng MA [facility] 4 15:15:58 Date Recorded Body height Body mass index (BMI) Body weight Heart rate Oxygen saturation Oxygen saturation in Arterial blood by Pulse oximetry Body temperature Systolic And Diastolic Provider Name and Address Organization Details Last Updated DateTime 4 160.02 cm 28.9 kg/m2 76847.6 6 g 69 /min 96 % 96 % 98.1 [degF] 146/78 mm[Hg] Graciela Shahid LPN [facility] 4 11:10:26 Date Recorded Body height Body mass index (BMI) Body weight Oxygen saturation Oxygen saturation in Arterial blood by Pulse oximetry Heart rate Body temperature Systolic And Diastolic Provider Name and Address Organization Details Last Updated DateTime 5 160.02 cm 29.6 kg/m2 45707.6 3 g 100 % 100 % 78 /min 97.7 [degF] 128/75 mm[Hg] Katelin Suh MA [facility] 5 13:31:11 Social History Question Answer Notes LastModified by Organizat ion Details LastModified Time Tobacco Smoking Status Never Smoker Not Available [facility] 04/30/2020 03:36:36 Do You Have An Advance Directive? Yes [employer] [place] Information not available 09/30/2021 Is Blood Transfusion Acceptable In An Emergency? Yes [id number] Information not available 04/30/2020 What Is Your Level Of Caffeine Consumption? Moderate 1 Coffee Daily Information not available 08/12/2022 How Much Tobacco Do You Chew? None [id number] Information not available 04/30/2020 What Type Of Diet Are You Following? CARBOHYDRATE Low Sodium Information not available 08/12/2022 Which Illicit Or Recreational Drugs Have You Used? None [id number] Information not available 04/30/2020 Live Alone Or With Others? With Others (Delta) And Son [email or web address] Information not available 09/30/2021 Do You Take Precautions To Prevent Distracted Driving? Yes Information not available 01/31/2016 How Often Do You Need To Have Someone Help You When You Read Instructions, Pamphlets, Or Other Written Material From Your Doctor Or Pharmacy? Never [email or web address] Information not available 01/31/2016 Have You Served In The ? No keven Information not available 06/29/2017 Have You Or Anyone In Your Household Had Any Of The Following Symptoms In The Last 14 Days: Sore Throat, Cough, Chills, Body Aches For Unknown Reasons, Shortness Of Breath For Unknown Reasons, Loss Of Smell, Loss Of Taste, Fever At Or Greater Than 100 Degrees Fahrenheit? No [email or web address] Information not available 04/25/2020 Are You Or Anyone In Your Household A Health Care Provider Or Emergency Responder? No [email or web address] Information not available 04/25/2020 To The Best Of Your Knowledge Have You Been In Close Proximity To Any Individual Who Tested Positive For COVID-19? No [email or web address] Information not available 04/25/2020 *AWV ONLY* Are You Presently Prescribed Opioid Medication By PCP Or Specialist? If YES -Provider Assess The Benefit For Other, Non-opioid Pain Therapies Instead, Even If The Patient Does Not Have OUD But Is Possibly At Risk. No [email or web address] Information not available 03/22/2025 What Was The Date Of Your Most Recent Tobacco Screening? 03/22/2025 [email or web address] Information not available 03/22/2025 How Many Children Do You Have? 3 Westley Awan, And Nilo [id number] Information not available 04/30/2020 Do You Use Protection During Sex? No [id number] Information not available 04/30/2020 Do You Use Your Seat Belt Or Car Seat Routinely? Yes Information not available 09/30/2021 Seat Belts Used Routinely Yes Information not available 09/30/2021 Are You Sexually Active? Yes [id number] Information not available 04/30/2020 Smoke Alarm In Home Yes Information not available 09/30/2021 Do You Have Smoke And Carbon Monoxide Detectors In Your Home? Yes Information not available 09/30/2021 At What Age Did You Start Smoking Tobacco? 2 [id number] Information not available 04/30/2020 Are You Passively Exposed To Smoke? No [email or web address] Information not available 01/31/2016 How Much Tobacco Do You Smoke? No [id number] Information not available 04/30/2020 Do You Use Sunscreen Routinely? Yes [id number] Information not available 04/30/2020 How Many Years Have You Smoked Tobacco? 0 [id number] Information not available 04/30/2020 Sex: Unknown Functional Status Question Answer Note LastModified by Organizat ion Details LastModified Time Do you use any illicit or recreational drugs? No Information not available 09/30/2021 Do you or have you ever used any other forms of tobacco or nicotine? No Information not available 08/12/2022 What is your level of alcohol consumption? Occasional [id number] Information not available 04/30/2020 Do you or have you ever used smokeless tobacco? Never used smokeless tobacco [id number] Information not available 04/30/2020 Are you currently employed? No [id number] Information not available 04/30/2020 Are you able to walk independently without assistance or assistive devices? YESWOREST Information not available 09/30/2021 Are you able to care for yourself independently? 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 Never used electronic cigarettes Information not available 09/30/2021 What is your exercise level? Moderate walking and PT [id number] Information not available 04/30/2020 Mental Status None recorded. Family History Relationship Description Onset Age of this Age Resolved Age Notes LastModified by Organization Details LastModified Time Father Primary malignant neoplasm of lung 87 87 diagno sed Novemb er 2018 [email or web address] Not available 04/05/2019 10:31:30 Father Arthritis 87 [email or web address] Not avail able 10/13/2023 15:59:34 Father Heart disease 87 [email or web address] Not available 07/29 11:02:41 Mother Arthritis born 1931 [email or web address] Not available 08/12/2022 11:02:54 Mother Obesity Not available 0 09/30/2021 14:54:59 Mother Heart disease 93 [email or web address] Not available 02/27 14:06:14 Notes:2 sisters (pt is oldes t) Medical History Condition Response Heart Problems Y GI Problems Y Gynecological History Statement/Question Response Date of Last Pap Smear Date of Last Colonoscopy 09/16/2021 Most Recent Mammogram 08/16/2023 Most Recent Bone Density 08/28/2020 Obstetrics History GPAL:G 0 P 0 0 0 0 Immunizations Vaccine Type Date Status Note Provider Shon matos and Address Organization Details Recorded Time [facility]dap 5 [facility] 08:43:37 COVID-19, mRNA, LNP-S, PF, 100 mcg/0.5mL dose or 50 mcg/0.25mL dose 1 [facility]21 09:30:32 Influenza, split virus, quadrivalent, PF 1 completed FRAN Parrish [facility] 06/19/2021 09:30:32 COVID-19, mRNA, LNP-S, PF, 100 mcg/0.5mL dose or 50 mcg/0.25mL dose 1 completed FRAN Parrish, [facility] 06/19/2021 09:30:32 COVID-19, mRNA, LNP-S, PF, 100 mcg/0.5mL dose or 50 mcg/0.25mL dose 1 [facility]/2021 09:30:32 COVID-19, mRNA, LNP-S, PF, 100 mcg/0.5mL dose or 50 mcg/0.25mL dose 2 completed FRAN Parrish [facility] 08/12/2022 10:27:03 Influenza, adjuvanted, quadrivalent, PF 2 completed FRAN Parrish [facility] 08/12/2022 10:27:15 COVID-19, mRNA, LNP-S, bivalent, PF, 50 mcg/0.5 mL or 25mcg/0.25 mL dose 2 completed FRAN Parrish [facility] 08/12/2022 10:27:15 Influenza, high-dose, quadrivalent, PF 3 completed FRAN Clark, [facility] 07/06/2023 14:22:36 COVID-19, mRNA, LNP-S, PF, 100 mcg/0.5mL dose or 50 mcg/0.25mL dose 2 completed FRAN Clark, [facility] 07/06/2023 14:22:36 Pneumococcal conjugate PCV20, polysaccharide ZNP580 conjugate, adjuvant, PF 3 completed FRAN Clark, [facility] 07/06/2023 14:22:36 COVID-19, mRNA, LNP-S, PF, 50 mcg/0.5 mL 3 completed FRAN Clark, [facility] 07/06/2023 14:22:36 RSV, recombinant, protein subunit RSVpreF, adjuvant reconstituted, 0.5 mL, PF 4 completed KARLA Larios, [facility] 12/02/2023 11:10:41 Influenza, split virus, quadrivalent, PF 6 completed Not Available [facility] 07/15/2019 02:22:04 COVID-19, mRNA, LNP-S, PF, [place]-sucrose, 30 mcg/0.3 mL 4 completed Not Available [facility] 03/22/2025 13:24:39 Influenza, high-dose, trivalent, PF 4 completed Not Available [facility] 03/22/2025 13:24:39 Influenza, split virus, quadrivalent, PF 8 completed Not Available [facility] 07/15/2019 02:22:13 Influenza, split virus, quadrivalent, PF 9 completed Not Available [facility] 07/15/2019 02:22:10 Influenza, split virus, quadrivalent, PF 0 completed FRAN Kearney, [facility] 04/25/2020 10:51:47 Tdap 8 completed Not Available [facility] 01/09/2014 13:23:51 Influenza, high-dose, trivalent, PF 5 completed Katelin Suh MA [facility] 03/22/2025 13:42:55 Past Encounters Encounter ID Performer Location Encounter Start Date Encounter Closed Date Diagnosis/Indication Diagnosis SNOMED-CT Code Diagnosis ICD10 Code Diagnosis IMO Codes Diagnosis Note [id number] [facility] [address] [facility],[place] [address] [place] [address] 12/01/2007 00:00:00 [id number] [employer] [facility] [address] [facility],[place] [address] [place] [address] 07/09/2008 00:00:00 [id number] [employer] [place] [address] [place] [address],[place] [address] [place] [address] 10/09/2010 00:00:00 [id number] Steve Escobar MD Main Office [address] [address] 01/14/2016 13:23:39 01/14/2016 14:24:18 Acute pharyngitis 581375327 J02.9 Otitis media 72487143 H6 6.93 [id number] Angel Centeno MD Main Office [address] [address] 01/25/2016 09:59:07 01/25/2016 10:30:34 Sinusitis 91423487 J32.9 Persistent sinus inflammati on either secondary to allergies or infection now affording ETD and hearing loss. Eustachian tube disorder 95944532 H69.93 Will address inflammati on potentiall y from allergies with short course of systemic steroids. Common potential side effects discussed. INB/worse or additional symptoms develop may need a course of abx covering for atypical organisms and/or and extended course of steroid. [id number] Steve Escobar MD Main Office [address] [place] [address] 01/31/2016 09:28:16 01/31/2016 10:13:04 Eustachian tube disorder 67138492 H69.93 We will do a trial of a steroid nasal spray and she will continue with the loratidine . She was given an ENT referral and she will make an appointmen t if her symptoms persist. [id number] Steve Escobar MD Main Office [address] [address] [place] [address] 02/26/2016 09:24:15 02/26/2016 10:25:51 Adult health examination 194015876 Z00.00 She is UTD with immunizati ons, mammogram, colonoscop y and [employer] care. Needs infl uenza immunization 480258973 Z23 Sinusitis 36292315 J32.9 Allergic rhinitis 253044 04 J30.9 We will change meds since they no longer seem to be helping. She has an appointmen t next month with ENT. We will also do a course of a different abx since her symptoms have persisted and have gotten worse after getting better. [id number] Boyd Young PA-C Main Office [address] [place] [address] 09/07/2016 14:54:27 09/07/2016 16:04:08 Upper respiratory infection 55626570 J06.9 25 minute office visit with greater than 50% of the visit face-to-fa ce with the patient and/or family providing counseling and/or coordinati on of care. Decreased hearing 540861 001 H91.92 see below Impacted cerumen 7445317 6 H61.23 removed small cerumen impaction (~20%) of canal c curette - rec. debrox [id number] Steve Escobar MD Main Office [address] [place] [address] 06/29/2017 10:46:18 06/29/2017 11:43:55 Adult health examination 031773206 Z00.00 She was given a script for shingles vaccine and will receive a flu shot today. She is UTD w/colonosc opy and due again in 2021. She will make a [employer] appointmen t for PAP and mammogram. Needs infl uenza immunization 874621445 Z23 Varicella vaccination 68 009090 Z23 [id number] Steve Escobar MD Main Office [address] [place] [address] 04/05/2019 10:08:41 04/05/2019 11:05:14 Adult health examination 994640249 Z00.00 She was given a script for shingles vaccine and will receive a flu shot today. She is UTD w/colonosc opy and due again in 2021. She will make a [employer] appointmen t for PAP and mammogram. Needs infl uenza immunization 320139772 Z23 Menopause present 206705 006 Z78.0 Varicella vaccination 68 544518 Z23 [id number] Steve Escobar MD [facility] [address] [facility] [address] [place] [address] 01/08/2020 13:28:42 01/08/2020 16:28:41 Irritable bowel syndrome with diarrhea 098718765 K58.0 She will try to make changes as outlined in the handouts and if her symptoms persist she will call here in one month and we will do a GI referral. [id number] Steve Escobar MD Main Office [address] [facility] [address] [place] [address] 04/25/2020 09:49:06 04/25/2020 10:37:16 Adult health examination 924491516 Z00.00 She was given a script for shingles vaccine and will receive a flu shot today. She is UTD w/colonosc opy and due again in 2021. She will make a [employer] appointmen t for PAP and mammogram. She was advised to get a shingles shot done at the pharmacy. Needs infl uenza immunization 011404851 Z23 Irritable bowel syndrome with diarrhea 389359819 K58.0 Currently followed by GI. Had normal labs including stool studies and also had a normal CT scan. Currently doing an eliminatio n diet and will follow up there. Was prescribed meds (amitrptyl ine) but has not yet started. [id number] Tien Jacobson MD Main Office [address] [facility] [address] [place] [address] 11/15/2020 14:50:47 11/15/2020 16:07:46 Dizziness 003387772 R42 Episodic and spontaneou s dizziness without headache or hearing loss, KJ negative. Differenti al include: Impacted cerumen on left however this would not explain vomiting. Vestibular neuritis - For include spontaneou s, no triggered with vomiting: Thus will do trial meclizine and Vestibular PT Cardiac: Murmur present thus will get urgent echo as patient is due to get colonoscop y Wednesday for diarrhea by GI Diarrhea --> dehydratio n: Although unlikely as orthsosis negative and this is a chronic issue. Impacted c erumen in left ear [id number] 638285 H61.22 Allergic rhinitis 626748 04 J30.9 Elevated blood-pressure reading without diagnosis of hypertension 112789485 R03.0 Given dizziness and not Dx of htn will hold tx for now, lifestyle modificati ons discussed. Red flags of hypertensi ve emergency discussed Will have follow up in 2 weeks for BP follow up. [id number] Steve Escobar MD Main Office [address] [facility] [address] [place] [address] 12/04/2020 10:45:33 12/04/2020 11:28:27 Elevated blood-pressure reading without diagnosis of hypertension 256937417 R03.0 She will check and record her JORDI 2-4 times a week and will call if it is consistent ly running above 160 systolic. She wants to try to bring this down on her own w/o meds before discussing starting meds. [id number] Steve Escobar MD Main Office [address] [facility] [address] [place] [address] 06/19/2021 09:25:46 06/19/2021 10:18:19 Adult health examination 892810232 Z00.00 She is UTD with immunizati ons including COVID along with her booster but is due for a shingles vaccine which she was advised to get at her pharmacy. She is also UTD with [employer] care and mammogram. Had a bone density at [facility] earlier this year. Hyperlipidemia 45117403 E78.5 On meds and LDL at goal. Followed by cardiology . Greater tr ochanteric pain syndrome 6489211 M70.61 Followed by rheum and treated with cortisone injections . Irritable bowel syndrome with diarrhea 356222090 K58.0 Currently followed by GI. Had normal labs including stool studies and also had a normal CT scan. Currently treated with fiber supplement s. [id number] Steve Escobar MD Main Office [address] [facility] [address] [place] [address] 09/30/2021 14:53:36 09/30/2021 15:38:06 Herpes zoster 6057842 B02.9 Advised to take naproxen twice a day regularly for now. [id number] Meme gomez MD [facility] [address] [facility] [address] [place], [place] [address] 12/19/2021 15:48:19 12/23/2021 15:43:01 COVID-19 609787009 U07.1 dx today, 5th day of symptoms, no hx of renal disease, pt is interested in med, will treat with paxlovid (written and sent already) and pt to sto lovastatin for 10 days due to drug interactio n. to ER if any sob at rest or worsening of symptoms med is free for pt, I spoke to pharmacist Hypercholesterolemia 136 70566 E78.00 stop statin for 10 days Essential hypertension 58385478 I10 well controlled ocntinue med [id number] COLT SAAVEDRA MD [facility] [address] [address] [place] [address] 06/26/2022 16:37:05 06/30/2022 13:55:37 COVID-19 569528526 U07.1 - symptoms started on 06/23, tested positive on 06/26- Tylenol OTC, not to exceed package insert for pain or fever q4-6h advised prn. Counselled on not exceeding more than 3g/day.- Throat Lozenges otc prn for sore throat- saltwater gargle- adequate hydration enforced- saline sprays- humidifier use enforced.p axlovid sent, last available kidney function reviewed, advised eua and potential side effects,- Advised to hold statin- Pt advised to monitor blood pressure as there is some interactio n with metoprolol - Also advised can use a teaspoon honey for cough- isolation precaution discussed- precaution advised if any difficulty breathing or tmax 103 > go to nearest ED [id number] Steve Escobar MD Main Office [address] [place] [address] 08/12/2022 10:24:59 08/12/2022 11:20:28 Adult health examination 817624947 Z00.00 She is UTD with immunizati ons including COVID along with her booster but is due for a shingles vaccine which she was advised to get at her pharmacy. She was also advised to get the prevnar 20 at her pharmacy since she is now due. She is also UTD with [employer] care and mammogram. Had a bone density at [facility] 2 years ago and is due for another one. She has a health care proxy and living will in place. Administra tion of pneumococcal vaccine 25323691 Z23 Irritable bowel syndrome with diarrhea 772001749 K58.0 Currently followed by GI. Had normal labs including stool studies and also had a normal CT scan. Currently treated with fiber supplement s which have been helping. [place] to be bile acid diarrhea. 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 [id number] Steve Escobar MD Main Office [address] [facility] [address] [place] [place] [address] 07/06/2023 14:15:43 07/06/2023 14:44:16 Dysfunction of bilateral eustachian tubes 1921754777 656107 H69.93 takes flonase daily which has not helped, sx for 15 days, will tx with prednisone burst, continue flonase sensimist daily.If not better next week please call/ return. Essential hypertension 10215199 I10 continue current meds [id number] Steve Escobar MD Main Office [address] [facility] [address] [place] [place] [address] 10/13/2023 15:09:37 10/13/2023 16:02:40 Adult health examination 064242576 Z00.00 She is UTD with immunizati ons including COVID along with her booster but is due for a shingles vaccine which she was advised to get at her pharmacy. She is also UTD with [employer] care and mammogram. Had a bone density at [facility] in 2020 and is due for another one. She will make her own appointmen t. She has a health care proxy and living will in place. Essential hypertension 28571767 I10 Hyperlipidemia 10946635 E78.5 On meds and LDL at goal. Followed by cardiology . Bone density finding 385 916737 M85.89 She will make her own appointmen t. Bile acid malabsorption syndrome 26166694 E78.70 On meds, followed by GI and diarrhea under control. History of SARS-CoV-2 29 35386477 60851383 Z86.16 Tested positive 3 times with minor symptoms. [id number] Steve Escobar MD Main Office [address] [facility] [address] [place] [address] 12/02/2023 10:49:31 12/02/2023 11:47:48 Hollins's neuroma of left foot 9988486351 16695 G57.62 Her left foot numbness is in the distributi on of a Hollins's neuroma. Will refer her to podiatry for further evaluation . Paresthesi a of lower extremity 497026181 R20.2 Unclear etiology for LE numbness/t ingling. We will start with some screening blood work and a possible referral to neurology. [id number] Steve Escobar MD Main Office [address] [facility] [address] [place] [address] 03/22/2025 13:21:19 03/22/2025 14:34:35 Adult health examination 517996683 Z00.00 She is UTD with immunizati ons including COVID along with her booster but is due for a shingles vaccine which she was advised to get at her pharmacy.S he is UTD with pneumonia and RSV vaccines and will get her flu vaccine today.She is due for a tetanus vaccine which she will get at her pharmacy.S he is also UTD with [employer] care and mammogram. Had a bone density July 2024 which was normal.She has a health care proxy and living will in place. Essential hypertension 73361447 I10 Good control; continue current mgmt. Influenza vaccine needed 8468854400 106 Z23 65 YEARS AND OLDER Health Concerns Section Related Observation LastModified by Organization Detai ls LastModified Time None Recorded Concern Status LastModified by Organization Details LastModified Time None Recorded Advance Directives Directive Y: Delta [employer] Payers Insurance Date Sequence Insurance Name Policy Number Policy Concepcion Covered Member ID Concepcion Member ID Guarantor Name 03/22/2025 2 [facility] (MEDICARE SUPPLEMENT) [id number] Carly Knox [id number] [employer] 06/30/2022 2 [facility] (PPO[place] [id number] Delta Knox [id number] [employer] 03/08/2019 1 [employer] [id number] Delta Knox [id number] Delta Knox 03/22/2025 1 [place] [employer] [place] Carly Knox [id number] [employer] Notes Date Note Type Note Provider Name and Address Organization Details Recorded Time 08/12/2022 text/html Medicare Annual Wellness VisitReported by PatientSocial/Behavior al HistoryFor diet and nutrition, patient reportshealthy diet. For fracture risk, patient reportsno history of fractures. For physical activity, patient reportsexercises on a regular basisandgood physical condition.Mental Status:For orientation, patient reportsno disorientation to time,no disorientation to date, andno disorientation to place. For concentration and memory, patient reportsno decreased concentrating ability,no memory lapses or loss, anddoes not forget words.Functional AbilityFor hearing, patient reportsno loss of hearing. For vision, patient reportsno vision problems. For activities of daily living, patient reportsable to bathe with limited or no assistance,able to contol urination and bowels,able to dress with limited or no assistance,able to feed self with limited or no assistance,able to get out of chair or bed with limited or no assistance,able to groom with limited or no assistance, andable to toilet with limited or no assistance. For instrumental activities of daily living, patient reportsable to do house work with limited or no assistance,able to grocery shop with limited or no assistance,able to manage medications with limited or no assistance,able to manage money with limited or no assistance,able to prepare meals with limited or no assistance, andable to use the phone with limited or no assistance. For falls risk assessment, patient reportsno frequent falls while walking,no fall since last visit, andno dizziness/vertigo. She has a health care proxy and living will in place.Vaccinated against COVID and has not been infected.Was having problems with chronic diarrhea which has improved since taking fiber. Steve Escobar MD [address] [address], [place], [address], [facility] 08/13/2022 14:37:49 07/06/2023 text/html Generic HPI TemplateReported by PatientSx for 15 days, started with cold like sx, head congestion, sore throat, no headache, sinus pain or pressure, no ear pain but + fullness, cough that is improving- slight production- clear, clear nasal discharge.No N/V/D, no decreased appetite, overall better except for ear fullness and decreased hearing.Tested x 4 for covid in the last 2 weeks. ADOLFO Hester [address] [address], [place], [address], [facility] 07/06/2023 14:52:21 10/13/2023 text/html Medicare Annual Wellness VisitReported by PatientSocial/Behavior al HistoryFor fracture risk, patient reportshistory of fractures (right elbow at age 9 and right ankle 2014.). For diet and nutrition, patient reportshealthy diet. For physical activity, patient reportsexercises on a regular basisandgood physical condition.Mental Status:For orientation, patient reportsno disorientation to time,no disorientation to date, andno disorientation to place. For concentration and memory, patient reportsno decreased concentrating ability,no memory lapses or loss, anddoes not forget words.Functional AbilityFor hearing, patient reportsno loss of hearing. For vision, patient reportsno vision problems. For activities of daily living, patient reportsable to bathe with limited or no assistance,able to contol urination and bowels,able to dress with limited or no assistance,able to feed self with limited or no assistance,able to get out of chair or bed with limited or no assistance,able to groom with limited or no assistance, andable to toilet with limited or no assistance. For instrumental activities of daily living, patient reportsable to do house work with limited or no assistance,able to grocery shop with limited or no assistance,able to manage medications with limited or no assistance,able to manage money with limited or no assistance,able to prepare meals with limited or no assistance, andable to use the phone with limited or no assistance. For falls risk assessment, patient reportsno frequent falls while walking,no fall since last visit, andno dizziness/vertigo. She has a health care proxy and living will in place.Vaccinated against COVID and has been infected 3 times with mild symptoms.Was having problems with chronic diarrhea which has improved since taking fiber (cholestyramine). Steve Escobar MD [address], [address], [facility] 10/14/2023 07:58:48 12/02/2023 text/html ROS as noted in the HPI Started with numbness and tingling bottom of left foot at her toes at the 3 middle toes 2 months ago. Was intermittent but now occurs multiple times a day. She denies any actual pain and it does not feel like she is walking on a pebble. The sensation can happen day or night. In addition, she describes numbness at her RLE especially around her calf and her ankle. She denies any injury and this has been going on for a few weeks. There are no color changes. Steve Escobar MD [address] [address], [place], [address], [facility] 12/06/2023 11:53:59 03/22/2025 text/html Medicare Annual Wellness VisitReported by PatientSocial/Behavior al HistoryFor fracture risk, patient reportshistory of fractures (right elbow at age 9 and right ankle 2013.). For diet and nutrition, patient reportshealthy diet,discussed vitamin and supplement use, anddiscussed maintaining calcium balance. For physical activity, patient reportsexercises on a regular basisandgood physical condition.Mental Status:For orientation, patient reportsno disorientation to time,no disorientation to date, andno disorientation to place. For concentration and memory, patient reportsno decreased concentrating ability,no memory lapses or loss, anddoes not forget words.Functional AbilityFor hearing, patient reportsno loss of hearing. For vision, patient reportsno vision problems. For activities of daily living, patient reportsable to bathe with limited or no assistance,able to contol urination and bowels,able to dress with limited or no assistance,able to feed self with limited or no assistance,able to get out of chair or bed with limited or no assistance,able to groom with limited or no assistance, andable to toilet with limited or no assistance. For instrumental activities of daily living, patient reportsable to do house work with limited or no assistance,able to grocery shop with limited or no assistance,able to manage medications with limited or no assistance,able to manage money with limited or no assistance,able to prepare meals with limited or no assistance, andable to use the phone with limited or no assistance. For falls risk assessment, patient reportsno frequent falls while walking,no fall since last visit, andno dizziness/vertigo. For home safety, patient reportsworking smoke/co detectors. She has a health care proxy and living will in place.Vaccinated against COVID and has been infected 3 times with mild symptoms.Was having problems with chronic diarrhea which has improved since taking fiber (cholestyramine). Steve Escobar MD [address] [address], [place], [address], [facility] 03/23/2025 15:38:53 OBGyn Episode No OBEpisode recorded.
== END 2025-03-28 10:28 | disposition home or self-care (01) ==
LOC: HO.HSM 09:48
PROVIDERS: PCP Internal Medicine; Referring Provider Internal Medicine; Visit Provider Registered Nurse
DX: G62.9 Polyneuropathy, unspecified (principal)
CPT/HCPCS: 99214

== ENCOUNTER → 2025-03-28 09:48 | Outpatient (BNVA) | payer MEDICARE, SELFPAY | PROVIDERS: PCP Internal Medicine; Referring Provider Internal Medicine; Visit Provider Registered Nurse | DX: R20.0 Anesthesia of skin (principal); G62.9 Polyneuropathy, unspecified; R20.2 Paresthesia of skin | CPT/HCPCS: 99212 ==